=== PATIENT | female | born 2000 | race Caucasian/White ===

== ENCOUNTER 2024-08-21 10:06 | Emergency (ER) | payer OTHER, SELFPAY ==
[2024-08-21 10:08] VITALS: BP 126/84
--- NOTE | 2024-08-21 11:06 | ED.GENMED ---
History of Present Illness
General
Chief Complaint: Abdominal Symptoms
Source: patient
Time Seen by Provider: 08/21/24 10:13
History of Present Illness
History of Present Illness:
23-year-old female with past medical history of asthma, questionable interstitial cystitis presenting to the emergency department for evaluation of her symptoms that been waxing and waning for the better part of a year noting intermittent but
intense vaginal discomfort, vulvar irritation, painful intercourse, mucousy stools, intermittent sensation of incomplete bladder emptying and tenesmus, generalized fatigue and nausea. Patient has been seen at various different urgent cares,
emergency room's and recently seen by her automation/controls manager and sent to a urogynecologist where she was given a prescription for Valtrex for a questionable area of herpes however patient states this small lesion did not resolve following Valtrex and she
was told that it was unlikely to be herpes. Patient notes that she has been treated for multiple urinary tract infections over the last year with some relief of symptoms while taking but usually symptoms return. She also notes intermittently
missed periods and was told symptoms could be related to endometriosis. Last menstrual period 2 months ago but patient does not believe to be . Patient denies any fevers, chills, rigors, flank pain, vomiting, vaginal bleeding or discharge,
current back or flank pain or any other concerns.
Past History
Past History
ED Past Medical History: Asthma
ED Past Surgical History: None
Social History
Tobacco: Non-smoker
Alcohol: None
Drug: None
Personal: Single
Living: with family
Employment: Employed
Review of Systems
Review of Systems
All Other Systems: ROS reviewed and negative except as documented in HPI and ROS
Phy Exam
Physical Exam
Physical Exam:
GENERAL: Alert , in no apparent distress, anxious and tearful
EYE: clear conjunctiva b/l
HEAD: NCAT
ENT: o/p clr, mmm.
CARDIAC: Regular rate and rhythm .
LUNGS: Clear breath sounds bilaterally, no acute respiratory distress, no wheezes/rales/rhonchi
ABDOMEN: Soft, without focal tenderness, no r/g, no cvat
NEUROLOGICAL: Alert and oriented
SKIN: Warm and dry, skin intact.
MUSCULOSKELETAL: well perfused.
PSYCH: Normal and appropriate interaction.
Scores
Heart Failure Risk
Heart Failure Risk Score: Not Applicable
Heart Score for Chest Pain Patients
STEMI patient?: Not applicable
Withdrawal Assessment of Alcohol
Withdrawal Assessment Completed?: Not applicable
Course
Orders/Labs/Results
Orders:
Orders
08/21/24 10:54
Urinalysis Reflex To Culture Urgent
Date Specimen was Collected: 08/21/24
Time Specimen was Collected: 10:56
Test Result ONCE
08/21/24 10:59
Beta Hcg Urine Qualitative Screen [HCG, Urine Qualitative Screen] Urgent
Date Specimen was Collected: 08/21/24
Time Specimen was Collected: 10:56
08/21/24 12:09
Complete Blood Count/With Diff Urgent
Comprehensive Metabolic Panel Urgent
HCG, Beta Quantitative [Beta HCG Quantitative] Urgent
Is this a screen?: No
Abnormal Lab Results
08/21/24
12:09
RBC 4.02 L 10^6/uL
(4.20-5.40)
Hct 35.9 L %
(37.0-47.0)
MCH 31.3 H pg
(27.0-31.0)
BUN 4 L mg/dl
(7-17)
Albumin 5.1 H g/dl
(3.5-5.0)
08/21/24 12:09
08/21/24 12:09
Vital Signs
Initial and Last Documented VS:
Initial Vital Signs
Temp Pulse Resp BP Pulse Ox
98.3 F 101 16 126/84 98
08/21/24 10:08 08/21/24 10:08 08/21/24 10:08 08/21/24 10:08 08/21/24 10:08
Last Documented Vital Signs
Temp Pulse Resp BP Pulse Ox
98.3 F 101 16 126/84 98
08/21/24 10:08 08/21/24 10:08 08/21/24 10:08 08/21/24 10:08 08/21/24 10:08
MDM/Problems Addressed
Differential Diagnosis Includes:
, IC, cystitis, pyelonephritis, IBS, UC/Crohn's disease, vulvodynia, no concern for STI given recent negative testing
MDM/Problems Addressed:
23-year-old female presenting to the ER for evaluation of ongoing pelvic pain, urinary symptoms, bowel changes without any specific etiologies found. Patient recently saw urogynecologist who was concern for interstitial cystitis. Based off
symptoms I do suspect this is a very strong possibility for a diagnosis. Patient notes she had relief with nortriptyline, recently ran out 3 days ago. Patient was also concerned she could have IBS. We had a long discussion in regards to her
symptoms as well as further workup here in the ER. Patient has had labs, imaging with no specific etiologies found and we discussed that it would be unlikely to yield any new results today. Will reach out to urology/gynecology here to see if they
would be able to follow-up with patient for a second opinion as well as if okay to represcribe patient nortriptyline. Patient requesting something for nausea. Will also trial Bentyl for GI spasm/cramping. Urinalysis sent as well as urine
test. Anticipate discharge home.
*Pulse Oximetry
Patient hypoxic: no
*Critical Care Note
Total Time (30-74mins, 75-104mins- exclusive of procedures): Not Applicable
Comment
Comment:
Patient's urine test came back positive. I added on an hCG quant as well as basic labs. Disposition remains pending.
Patient Management
Discussion with other providers: Body Care Manager
Escalation/DeEscalation of care consider admission/obs:
Patient's hCG quantitative came back at greater than 59,000. I did offer to do a bedside ultrasound however patient declined that she states she is not sure what she is going to do with the and did not want to see baby. I have minimal
suspicion for ectopic given the hCG level but did discuss this as a possibility with the patient who expressed understanding. I provided the patient with information for both urogynecology and BODY TECHNICIAN/PAINTER. She will contact both for follow-up
visit. She is aware of return precautions to the ER. Otherwise stable for discharge home.
ED Attending Note
-
Portions of this chart may have been created with voice recognition software.� Occasional wrong word or��sound alike� substitutions may have occurred due to the inherent limitations of voice recognition software.
Discharge Plan
Departure
Patient Disposition: Home (Routine Discharge)
Date of Disposition: 08/21/24
Time of Disposition: 14:40
Patient with high blood pressure during this ER visit?: No
Discharge Problem:
Positive test
Instructions: - The Second Month
Referrals:
Bety Silva [Other]
Be Dickey MD [Active] - (OBGYN)
Lynette Barry DO [Active] -
Pretty Pruett PA [Family Provider] -
Interventions
Interventions:
*Risk Screen - Suicide Last Done: 08/21/24 10:08
*General Assessment Last Done: 08/21/24 11:32
*Neglect/Abuse Screening Last Done: 08/21/24 10:08
*ED- Fall Risk Assessment Last Done: 08/21/24 11:32
*ED COVID-19 Vaccine History Last Done: 08/21/24 11:32
Discharge Date and Time
Print Language: SYRIAN
[2024-08-21 11:29] LABS: HCG, Urine Qualitative Screen Positive
[2024-08-21 12:20] LABS: % Basophils 0.3 % (0-2); % Immature Granulocytes 0.3 % (0-0.5); % Lymphocytes 21.7 % (20.5-51.1); % Monocytes 4.6 % (1.7-9.3); % Neutrophils 72.1 % (42.2-75.2); Absolute Eosinophils 0.1 10^3/uL (0-0.7); Absolute Lymphocytes 1.7 10^3/uL (1.2-3.4); Absolute Monocytes 0.4 10^3/uL (0.1-0.6); Absolute Neutrophils 5.7 10^3/uL (1.4-6.5); Hematocrit 35.9 % (37.0-47.0); Hemoglobin 12.6 g/dL (12.0-16.0); Mean Corp Hgb Conc. 35.1 g/dL (33.0-37.0); Mean Corpuscular Hgb 31.3 pg (27.0-31.0); Mean Corpuscular Volume 89.3 fL (81.0-99.0); Mean Platelet Volume 9.4 fL (7.4-10.4); Nucleated Red Blood Cells % 0 %; Platelet Count 217 10^3/uL (130-400); Red Blood Cell Count 4.02 10^6/uL (4.20-5.40); Red Cell Dist. Width 13.5 % (11.5-14.5); White Blood Cell Count 7.9 10^3/uL (4.8-10.8)
[2024-08-21 12:33] LABS: ALT (SGPT) 17 U/L (0-35); AST (SGOT) 22 U/L (14-36); Albumin 5.1 g/dl (3.5-5.0); Alkaline Phosphatase 58 U/L (38-126); Blood Urea Nitrogen 4 mg/dl (7-17); Calcium 9.8 mg/dl (8.4-10.2); Carbon Dioxide 26 mmol/L (22-30); Chloride 106 mmol/L (98-107); Glucose 91 mg/dl (70-99); Sodium 140 mmol/L (135-145); Total Bilirubin 0.7 mg/dl (0.2-1.3); Total Protein 7.6 g/dl (6.3-8.2); eGFR > 60.00
[2024-08-21 14:45] VITALS: BP 115/59
[2024-08-21 14:55] LABS: Urine Albumin Negative (Neg - Trace); Urine Bilirubin Negative (Negative); Urine Character Clear (Clear); Urine Color Yellow; Urine Glucose Negative (Negative); Urine Ketone Negative (Negative); Urine Leukocyte 1+ (Negative); Urine Nitrite Negative (Negative); Urine Occult Blood Negative (Negative); Urine Urobilinogen Negative (Neg - 1+)
[2024-08-21 15:24] LABS: Urine Bacteria Few (Negative); Urine Red Blood Cell 0-2 /HPF (0-2); Urine Urothelial Cell 0-2 /LPF (FEW)
== END 2024-08-21 14:45 | disposition home or self-care (01) ==
LOC: EMR 10:06
PROVIDERS: Physician Assistant Medical; EMERGENCY PHYSICIAN Emergency Medicine; FAMILY PHYSICIAN Physician Assistant
DX: R11.0 Nausea (principal); R10.2 Pelvic and perineal pain; R53.83 Other fatigue; Z32.01 Encounter for pregnancy test, result positive; J45.909 Unspecified asthma, uncomplicated; Z87.440 Personal history of urinary (tract) infections
CPT/HCPCS: 99283; 80053; 81003; 81015; 81025; 84702; 85025; 87086

== ENCOUNTER → 2025-01-07 10:30 | Outpatient (REF) | payer OTHER, SELFPAY | LOC: PNTC 10:30 | PROVIDERS: ATTENDING PHYSICIAN Advanced Practice Midwife | DX: O99.322 Drug use complicating pregnancy, second trimester (principal); Z36.3 Encounter for antenatal screening for malformations; O99.342 Other mental disorders complicating pregnancy, second trimester | CPT/HCPCS: 76811 ==